=== PATIENT | female | born 1985 | race Caucasian/White ===

== ENCOUNTER 2017-08-17 15:39 | Emergency (ER) | payer OTHER, SELFPAY ==
[2017-08-17] MEDS: IBUPROFEN 600 MG TAB PO ×2 (18:24)
== END 2017-08-17 19:54 | disposition home or self-care (01) ==
LOC: M ED 15:39
DX: Z04.1 Encounter for examination and observation following transport accident (principal); S50.11XA Contusion of right forearm, initial encounter; V44.5XXA Car driver injured in collision with heavy transport vehicle or bus in traffic accident, initial encounter; Y92.488 Other paved roadways as the place of occurrence of the external cause
CPT/HCPCS: 73090